=== PATIENT | female | born 1940 | race Caucasian/White ===

== ENCOUNTER 2017-08-25 21:37 | Emergency (ER) | payer MEDICARE ==
[~2017-08-25] VITALS: Ht 162.6 cm; Wt 77.1 kg
[~2017-08-25 21:37] MED LIST: ?BP MED PO; ALPR1T; ASPI-587 PO; ATRV10T; DEXL60CA3; DIPH1TAB45; FLC1T PO; FURO40TA4 PO; LISI10TA2; METO50TA7 PO; PREG50C; TMZP15C PO
--- NOTE | 2017-08-25 22:20 | ED Fall/Injury ---
General Chief Complaint: Trauma-Non Activation Stated Complaint: FALL Nursing Triage Note: Pt ambulatory to ED 5. Pt reports she was leaving friend's house and missed last step and tripped over friend's dog and fell, landing face first in [place]. Pt has abrasions to nose and swelling to R forehead. Ecchymosis noted to L eye. Pt has skin tear to R wrist and abrasion to R knee. Pt also c/o swelling to R knee. Pt denies LOC at time of accident. Source: patient Exam Limitations: no limitations History of Present Illness Date Seen by Provider: Aug 25, 2017 Time Seen by Provider: 22:00 Initial Comments The patient presents to ER with chief complaint that she was stepping down off the last step of her friend's back yard porch and either missed the step or tripped over the dog or both and landed face first on some gravel. She has some mild pain in her nose but she is not taken or requested anything for pain. She did not lose consciousness nor she had any nausea, blurry vision, discharge from the nose or ears. She has a goose bump on the forehead for which she has been applying ice. She has a small skin tear on her right wrist. She's not having any new pain anywhere else nor she have any shortness of breath or chest pain. She does not have any dysuria, fevers, chills or nausea. She does not use aspirin or blood thinners. She does not have a history of heart disease. Allergies and Home Medications Allergies Coded Allergies: Penicillins (Unverified Allergy, Mild, 04/03/09) iodine (Unverified Allergy, Mild, 04/03/09) Home Medications Alprazolam 1 Mg Tablet, 1 MG HS, (Reported) Aspirin 81 Mg Tablet.dr, 81 MG PO DAILY, (Reported) Atorvastatin Calcium 10 Mg Tablet, 10 MG HS, (Reported) Folic Acid 1 Mg Tab, 1 MG PO DAILY, (Reported) Furosemide 40 Mg Tablet, 40 MG PO BID, (Reported) Metoprolol Succinate 50 Mg Tab, 50 MG PO DAILY, (Reported) Temazepam 15 Mg Cap, 15 MG PO HS, (Reported) [?Bp Med] , 300 MG PO DAILY, (Reported) Patient Home Medication List Home Medication List Reviewed: Yes Review of Systems Constitutional: No chills, No diaphoresis Eyes: Denies Blindness, Denies Blurred Vision, Denies Drainage, Denies Pain Ears, Nose, Mouth, Throat: denies ear pain, denies ear discharge; nose pain; denies nose discharge, denies epistaxis, denies mouth pain (teeth are not loose , chipped or painful) Respiratory: No cough, No short of breath Cardiovascular: No chest pain, No edema, No palpitations Gastrointestinal: No abdominal pain, No constipation, No nausea, No vomiting Genitourinary: No discharge, No dysuria Musculoskeletal: No back pain, No joint pain Skin: other (goose egg on the forehead, small cuts on the nose and face as well as a skin tear on the right wrist.) Past Xkdowjj-Fkqirw-Pajuev Hx Patient Social History Alcohol Use: Denies Use Recreational Drug Use: No Smoking Status: Never a Smoker Recent Foreign Travel: No Contact w/Someone Who Travel: No Recent Infectious Disease Expo: No Recent Hopitalizations: No Physical Abuse: No Sexual Abuse: No Immunizations Up To Date Tetanus Booster (TDap): Unknown Date of Pneumonia Vaccine: Jun 09, 2012 Seasonal Allergies Seasonal Allergies: No Past Medical History Surgeries: Yes (EYE STENT, KNEE SCOPE, BOWEL SURGERY (FROM ISCHEMIC INTESTINES) ) Abdominal, Gallbladder, Orthopedic Respiratory: No Currently Using CPAP: No Currently Using BIPAP: No Cardiac: Yes High Cholesterol, Hypertension Neurological: No Reproductive Disorders: No Female Reproductive Disorders: Denies Sexually Transmitted Disease: No HIV/AIDS: No Genitourinary: No Gastrointestinal: Yes Gastroesophageal Reflux, Chronic Constipation, Chronic Diarrhea, Irritable Bowel Musculoskeletal: Yes Arthritis Endocrine: No Cataract, Glaucoma Cancer: No Psychosocial: No Nursing Suicide Risk Score: 0 Integumentary: No Blood Disorders: No Adverse Reaction/Blood Tranf: No Family Medical History Cardiovascular disease 19 MOTHER Cataracts 19 MOTHER Hypertension 19 MOTHER Myocardial infarction 19 MOTHER Respiratory disorder 19 MOTHER Thyroid disease 19 MOTHER Physical Exam Vital Signs Vital Signs - First Documented 08/25/17 21:45 Temp 96.6 Pulse 69 Resp 18 B/P (MAP) 149/74 (99) Pulse Ox 97 O2 Delivery Room Air Capillary Refill : Less Than 3 Seconds General Appearance: WD/WN, no apparent distress HEENT: PERRL/EOMI, normal ENT inspection, TMs normal, pharynx normal, other ( small minor cuts and abrasions along the nose and bridge of the forehead and glabella. 3-4 cm hematoma right center forehead) Neck: non-tender, full range of motion, normal inspection Cardiovascular: normal peripheral pulses, regular rate, rhythm, no edema, no JVD, no murmur Respiratory: chest non-tender, lungs clear, normal breath sounds, no respiratory distress, no accessory muscle use Peripheral Pulses: 2+ Radial Pulses (R), 2+ Radial Pulses (L) Gastrointestinal: non tender, soft Back: normal inspection, no vertebral tenderness Extremities: no pedal edema, normal capillary refill Neurologic/Psychiatric: alert, oriented x 3 Skin: other (2-3 cm skin tear that is hemostatic on the right wrist.) Adarsh Coma Score Best Eye Response: (4) Open Spontaneously Best Verbal Response: (5) Oriented Best Motor Response: (6) Obeys Commands [place] Total: 15 Progress/Results/Core Measures Results/Orders My Orders Orders - LLUVIA RAMIREZ Ct Head/Face/Cervical Wo (08/25/17 22:14) Vital Signs/I&O 08/25/17 21:45 Temp 96.6 Pulse 69 Resp 18 B/P (MAP) 149/74 (99) Pulse Ox 97 O2 Delivery Room Air Blood Pressure Mean: 99 Progress Progress Note : Time: 22:19 Progress Note We'll have nursing clean up the skin tear on the right wrist and apply a dressing. She does not want anything for pain right now. She already has an ice pack for her hematoma. We will obtain CT without contrast of her head, face, cervical spine. Diagnostic Imaging Diagonstic Imaging: CT Plain Films/CT/US/NM/MRI: facial bones, c-spine, head Comments Stat read: No acute hemorrhage, hydrocephalus or mass effect of the CT head. No acute fracture or subluxation. No deficits orbital soft tissue injury. No acute fracture or some rotation of the CT C-spine. Reviewed: Reviewed [place] Study, Reviewed by Me Departure Impression Primary Impression: Fall (on) (from) other stairs and steps, initial encounter Additional Impressions: Hematoma Tear of skin of right wrist Qualified Codes: S61.511A - Laceration without foreign body of right wrist, initial encounter Disposition: 01 HOME, SELF-CARE Condition: Stable Departure-Patient Inst. Decision time for Depature: 23:39 Referrals: NO,LOCAL PHYSICIAN (PCP) Primary Care Physician MOISES WEBB MD (Family) Primary Care Physician Patient Instructions: Preventing Falls Add. Discharge Instructions: Keep the skin tear on her right wrist clean with regular soap and water and you can apply a small dab of Vaseline and a Band-Aid as necessary. If it becomes red , swollen, hot or you start to have symptoms of infection you should follow-up with her primary care doctor. Use ice packs for the swelling and Tylenol/Motrin for the pain. All discharge instructions reviewed with patient and/or family. Voiced understanding. LLUVIA RAMIREZ Aug 25, 2017 22:20
--- OUTSIDE RECORDS SUMMARY | 2017-08-25 22:36 | XMS REPORT | Continuity of Care Document ---
Author Author [facility] Organization [facility] Address Unknown Phone Unavailable Allergies Active Description Code Type Severity Reaction Onset Reported/Identified Relationship to Patient Clinical Status Yes iodine [id number] Drug Allergy Mild N/A 04/03/2009 Yes Penicillins [id number] Drug Allergy Mild N/A 04/03/2009 Medications There is no data. 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 Ot V57.1 PHYSICAL THERAPY NEC 12/28/2013 AURE LEPE MD Ot 873.49 OPEN WOUND OF FACE NEC 12/28/2013 AURE LEPE MD Ot 923.03 CONTUSION OF UPPER ARM 12/28/2013 AURE LEPE MD Ot 959.01 HEAD INJURY, NOS 12/28/2013 AURE LEPE MD Ot E000.8 OTHER EXTERNAL CAUSE STATUS 12/28/2013 AURE LEPE MD Ot E884.4 FALL FROM BED 12/28/2013 AURE LEPE MD Ot V06.1 [id number], COMBINED [ 11/11/2014 MOISES WEBB MD Ot V76.12 11/25/2014 MOISES WEBB MD Ot V76.12 06/22/2015 MOISES WEBB MD Ot E78.5 HYPERLIPIDEMIA, UNSPECIFIED 06/22/2015 MOISES WEBB MD Ot I12.9 HYPERTENSIVE CHRONIC KIDNEY DISEASE W ST 06/22/2015 MOISES WEBB MD Ot N18.9 CHRONIC KIDNEY DISEASE, UNSPECIFIED 06/22/2015 MOISES WEBB MD Ot R07.89 OTHER CHEST PAIN 06/22/2015 MOISES WEBB MD Ot R91.8 OTHER NONSPECIFIC ABNORMAL FINDING OF [place] 08/05/2015 Ot 787.91 DIARRHEA 08/05/2015 Ot V76.12 OTH SCREEN MAMMO-MALIGN NEOPLASM OF ERICKA 08/05/2015 Ot V76.12 OTH SCREEN MAMMO-MALIGN NEOPLASM OF ERICKA 08/05/2015 JON ROBBINS, MOISES Garcia Ot V76.12 OTH SCREEN MAMMO-MALIGN NEOPLASM OF ERICKA 08/05/2015 JON ROBBINS, MOISES Garcia Ot V76.12 OTH SCREEN MAMMO-MALIGN NEOPLASM OF ERICKA 08/05/2015 MOISES WEBB MD Ot V76.12 OTH SCREEN MAMMO-MALIGN NEOPLASM OF ERICKA 11/09/2015 Ot 787.91 DIARRHEA 11/09/2015 Ot V76.12 OTH SCREEN MAMMO-MALIGN NEOPLASM OF ERICKA 11/09/2015 Ot V76.12 OTH SCREEN MAMMO-MALIGN NEOPLASM OF ERICKA 11/09/2015 MOISES WEBB MD Ot V76.12 OTH SCREEN MAMMO-MALIGN NEOPLASM OF ERICKA 11/09/2015 JON ROBBINS, MOISES Garcia Ot V76.12 OTH SCREEN MAMMO-MALIGN NEOPLASM OF ERICKA 11/09/2015 MOISES WEBB MD Ot V76.12 OTH SCREEN MAMMO-MALIGN NEOPLASM OF ERICKA 11/09/2015 MOISES WEBB MD Ot Z12.31 ENCNTR SCREEN MAMMOGRAM FOR MALIGNANT NE 11/09/2015 MOISES WEBB MD Ot Z12.31 ENCNTR SCREEN MAMMOGRAM FOR MALIGNANT NE 11/10/2015 MOISES WEBB MD Ot Z12.31 ENCNTR SCREEN MAMMOGRAM FOR MALIGNANT NE 11/30/2015 MOISES WEBB MD Ot Z12.31 ENCNTR SCREEN MAMMOGRAM FOR MALIGNANT NE Procedures There is no data. Results There is no data. Encounters ACCT No. Visit Date/Time Discharge Status Pt. Type Provider Facility Loc./Unit Complaint [id number] 11/09/2015 09:33:00 11/09/2015 23:59:59 CLS Outpatient MOISES WEBB MD [facility] RAD SCREENING [id number] 06/21/2015 21:55:00 06/22/2015 10:50:00 DIS Inpatient MOISES WEBB MD [facility] 4TH L LINGULAR PNEUMONIA, CHEST PAIN [id number] 11/05/2014 09:43:00 11/05/2014 23:59:59 CLS Outpatient MOISES WEBB MD [facility] RAD SCREENING [id number] 12/28/2013 10:12:00 12/28/2013 12:00:00 DIS Emergency AURE LEPE MD [facility] ER DIZZINESS/FALL HEAD LAC [id number] 11/03/2013 10:43:00 11/03/2013 23:59:59 CLS Outpatient MOISES WEBB MD [facility] RAD SCREENING [id number] 11/07/2012 13:28:00 11/07/2012 23:59:59 CLS Outpatient MOISES WEBB MD [facility] RAD SCREENING [id number] 10/30/2011 10:04:00 Document Registration [id number] 09/20/2011 13:43:00 Document Registration [id number] 10/12/2010 10:32:00 Document Registration [id number] 06/01/2010 00:00:00 Document Registration [id number] 03/05/2010 11:29:00 Document Registration [email or web address] 11/05/2014 09:44:01 ACT Document Registration
[2017-08-25 23:45] VITALS: BP 145/72
--- NOTE | 2017-08-26 07:11 | Diagnostic Imaging Report ---
CLINICAL INDICATION: Patient is status post fall with facial lacerations and bruising. EXAM: Axial Head CT without IV contrast. Axial Maxillofacial CT scan without IV contrast with sagittal and coronal reformations. Axial CT scan of the cervical spine with sagittal and coronal reformations. COMPARISON: CT scan of the head and cervical spine dated 12/28/2013. FINDINGS: HEAD CT: There is no evidence of acute cerebral infarct, intracranial hemorrhage, or gross mass effect. There are a few focal areas of low-attenuation white matter changes in both cerebral hemispheres, likely representing chronic small vessel ischemic disease. The brain parenchymal volume appears appropriate for patient's age. There is normal navarro-white matter distinction. There is no significant midline shift or herniation. There is no evidence of hydrocephalus. The basal cisterns are unremarkable. MAXILLOFACIAL CT: There is a small area of extra-cranial soft tissue swelling in the right frontal region with no skull fracture. Otherwise, the skull, extracranial soft tissue, and orbits are unremarkable. There is minimal mucosal thickening involving right maxillary sinus. Temporal bones show no significant abnormality. CERVICAL SPINE: There is no acute cervical spine fracture. There is grade 1 anterolisthesis of C3 on C4, C4 on C5, C5 on C6, and C7 on T1. There is no associated pars defects and these findings are suspected to be related to degenerative changes. There is multilevel cervical spine vertebral body spurs and facet arthropathy. There is suggestion of a diffuse disc bulges throughout cervical spine. There is multilevel neural foramen narrowing and central canal narrowing which is [id number]. The visualized neck soft tissue structures and visualized upper lung sheridan show no gross abnormality. IMPRESSION: 1: Age-related brain parenchymal changes with no evidence of acute intracranial process. 2: There is a small area of extracranial soft tissue swelling in the right frontal region. There is no skull fracture. 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 This is described above. Stat rad report did not describe multilevel listhesis. Otherwise, I agree with Stat rad report. Dictated by: Dictated on workstation # [id number]
== END 2017-08-25 23:45 | disposition home or self-care (01) ==
LOC: EDUNIT# 21:37 → ER 21:40
DX: S61.511A Laceration without foreign body of right wrist, initial encounter (principal); S00.83XA Contusion of other part of head, initial encounter; R40.2142 Coma scale, eyes open, spontaneous, at arrival to emergency department; R40.2252 Coma scale, best verbal response, oriented, at arrival to emergency department; R40.2362 Coma scale, best motor response, obeys commands, at arrival to emergency department; E78.00 Pure hypercholesterolemia, unspecified; I10 Essential (primary) hypertension; K21.9 Gastro-esophageal reflux disease without esophagitis; Z87.19 Personal history of other diseases of the digestive system; Z79.82 Long term (current) use of aspirin; Z88.0 Allergy status to penicillin; Z91.041 Radiographic dye allergy status; Z82.49 Family history of ischemic heart disease and other diseases of the circulatory system; W01.198A Fall on same level from slipping, tripping and stumbling with subsequent striking against other object, initial encounter; Y92.096 Garden or yard of other non-institutional residence as the place of occurrence of the external cause
CPT/HCPCS: 70450; 70486; 72125